=== PATIENT | female | born 1995 | race Hispanic/Latino ===

== ENCOUNTER 2019-12-13 00:28 | Emergency (ER) | payer BC ==
[2019-12-13 01:09] VITALS: BP 94/56
[2019-12-13 01:53] LABS: Basophils % (Auto) 0.4 % (0.0-1.8); Eosinophils # (Auto) 0.1 K/mm3 (0.0-0.4); Eosinophils % (Auto) 0.5 % (0.0-4.3); Hematocrit 39.8 % (30.3-42.9); Hemoglobin 13.4 gm/dl (10.1-14.3); Lymphocytes # (Auto) 3.3 K/mm3 (1.2-5.4); Mean Corpuscular HGB Conc 34 % (30-34); Mean Corpuscular Volume 90 fl (79-97); Monocytes # (Auto) 0.5 K/mm3 (0.0-0.8); Monocytes % (Auto) 3.7 % (0.0-7.3); Platelet Count 354 K/mm3 (140-440); Red Blood Count 4.43 M/mm3 (3.65-5.03); Red Cell Distribution Width 13.7 % (13.2-15.2)
[2019-12-13 02:12] LABS: Blood Urea Nitrogen 12 mg/dL (7-17); Calcium 8.8 mg/dL (8.4-10.2); Hemolysis Index 9
[2019-12-13 02:15] LABS: BUN/Creatinine Ratio 17
--- NOTE | 2019-12-13 02:36 | Emergency Department Report ---
ED Syncope HPI - General Chief Complaint: Syncope Stated Complaint: FAINTED Time Seen by Provider: 12/13/19 02:33 Source: patient Exam Limitations: no limitations - History of Present Illness Initial Comments: Patient is a 24-year-old female that presents emergency room for a near syncopal episode. 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 Patient states she noticed this and sat down. Patient denies loss of consciousness. Patient states she was had a near syncopal but never lost consciousness. Patient denies chest pain shortness of breath. Patient states she is now back to normal. Patient states she was sent down here from the PACU to be evaluated. Patient denies recent travel. Patient denies recent international travel. Patient denies exposure to the novel coronavirus. Patient denies sick contacts. Patient denies fever and chills. Patient denies cough. Patient denies diarrhea. Patient denies coming in contact with anybody with symptoms of the novel coronavirus. Timing/Prior Episodes: single episode today Precipitating Factors: Positive: lightheadedness, nausea Context: activity Loss of Consciousness: no loss of consciousness Current Symptoms: back to normal - Related Data Allergies/Adverse Reactions: Allergies No Known Allergies Allergy (Unverified 12/13/19 01:26) ED Review of Systems ROS: Stated complaint: FAINTED Other details as noted in HPI Constitutional: denies: chills, fever Eyes: denies: eye pain, eye discharge, vision change ENT: denies: ear pain, throat pain Respiratory: denies: cough, shortness of breath, wheezing Cardiovascular: denies: chest pain, palpitations Endocrine: no symptoms reported Gastrointestinal: denies: abdominal pain, nausea, diarrhea Genitourinary: denies: urgency, dysuria, discharge Musculoskeletal: denies: back pain, joint swelling, arthralgia Skin: denies: rash, lesions Neurological: as per HPI. denies: headache, weakness, paresthesias Psychiatric: denies: anxiety, depression Hematological/Lymphatic: denies: easy bleeding, easy bruising ED Past Medical Hx - Past Medical History Previous Medical History?: Yes Additional medical history: Elevated Cholesterol - Surgical History Past Surgical History?: Yes Additional Surgical History: Jaw, Tonsilectomy, Deviated Septum, TNA, - Family History Family history: no significant - Social History Smoking Status: Never Smoker Substance Use Type: None ED Physical Exam - General Limitations: No Limitations General appearance: alert, in no apparent distress - Head Head exam: Present: atraumatic, normocephalic - Eye Eye exam: Present: normal appearance, PERRL Pupils: Present: normal accommodation - ENT ENT exam: Present: mucous membranes moist - Neck Neck exam: Present: normal inspection - Respiratory Respiratory exam: Present: normal lung sounds bilaterally. Absent: respiratory distress - Cardiovascular Cardiovascular Exam: Present: regular rate, normal rhythm. Absent: systolic murmur, diastolic murmur, rubs, gallop - GI/Abdominal GI/Abdominal exam: Present: soft, normal bowel sounds - Extremities Exam Extremities exam: Present: normal inspection - Back Exam Back exam: Present: normal inspection - Neurological Exam Neurological exam: Present: alert, oriented X3 - Psychiatric Psychiatric exam: Present: normal affect, normal mood - Skin Skin exam: Present: warm, dry, intact, normal color. Absent: rash ED Course Vital Signs 12/13/19 12/13/19 01:04 01:09 Temperature 98 F Pulse Rate 86 Respiratory 16 Rate Blood Pressure 94/56 O2 Sat by Pulse 100 Oximetry - Reevaluation(s) Reevaluation #1: I discussed all results and clinical findings with patient. I discussed plan of care with patient. Patient agrees with plan of care. Patient is stable for discharge. Patient will be discharged home. Patient given discharge instructions. Patient voiced understanding of discharge instructions. 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 Patient had labs done. Patient's labs were hopefully unremarkable except for dehydration. Patient stable for discharge. Patient medically cleared to return to work. Patient not require any further emergency room services. Patient does not require inpatient services patient will be followed as an outpatient. - Differential Diagnosis Syncopal episode, vasovagal, dehydration, hyperglycemia. Critical care attestation.: If time is entered above; I have spent that time in minutes in the direct care of this critically ill patient, excluding procedure time. ED Disposition Clinical Impression: Near syncope, Lightheadedness, Vaso vagal episode, Dehydration Disposition: DC-01 TO HOME OR SELFCARE Is pt being admited?: No Does the pt Need Aspirin: No Condition: Stable Instructions: Dehydration (ED), Syncope (ED) Additional Instructions: Patient is medically cleared to return to work. Patient to follow-up with primary care in 2 to 3 days. Patient to rest. Patient to increase water. Patient to increase water. Patient to avoid strenuous exercise or heavy lifting until cleared by LEGAL SUPPORT ANALYST. Patient to take Tylenol or ibuprofen as needed for pain. Patient to return to the ER if condition worsens, changes or new symptoms arise. . Referrals: CHRISSY WILSON MD [Primary Care Provider] - 2-3 Days Time of Disposition: 04:04
[2019-12-13 03:21] LABS: Bacteria,Urine 1+ /HPF (Negative); Bilirubin,Urine NEG (Negative); Blood,Urine NEG (Negative); Color,Urine Yellow (Yellow); Mucus,Urine 3+ /HPF; Protein,Urine <15 mg/dL mg/dL (Negative)
== END 2019-12-13 04:23 | disposition home or self-care (01) ==
LOC: ED 00:28
DX: E86.0 Dehydration (principal); R42 Dizziness and giddiness; R55 Syncope and collapse; E78.00 Pure hypercholesterolemia, unspecified; Z98.890 Other specified postprocedural states
CPT/HCPCS: 36415; 80048; 81001; 82962; 84703; 85025